=== PATIENT | female | born 1940 | race Caucasian/White ===

== ENCOUNTER 2019-05-11 23:33 | Emergency (ER) | payer MEDICARE, BC ==
[2019-05-12 00:15] VITALS: BP 142/74
[2019-05-12] MEDS ORDERED: traMADol 50 MG Tab PO ONE (00:25)
--- NOTE | 2019-05-12 00:28 | EDM.PDOC ---
ED HPI GENERAL MEDICAL PROBLEM - General Chief Complaint: General Stated Complaint: POST OP BLEEDING Time Seen by Provider: 05/12/19 00:19 Source of Information: Reports: Patient, Family, RN Notes Reviewed History Limitations: Reports: No Limitations - History of Present Illness INITIAL COMMENTS - FREE TEXT/NARRATIVE: 79-year-old female presents emergency department today with difficulty with pain control and some post leading from her site. She recently underwent thyroidectomy 3 days prior was discharged from hospital today she does have some oozing small amounts of dark red blood from her OpSite she was given hydrocodone for pain control she has not been able to tolerate this medication due to the characteristics of medication facial flushing upset stomach Neck Pain Score (Numeric/FACES): 4 - Related Data Allergies Allergy/AdvReac Type Severity Reaction Status Date / Time hydrocodone AdvReac Anxiety Verified 05/12/19 00:03 Home Meds: Home Meds Multivitamin with Minerals [Multiple Vitamin] 1 tab PO DAILY 04/29/15 [History] PARoxetine HCl [Paroxetine HCl] 10 mg PO DAILY 04/29/15 [History] Triamterene/Hydrochlorothiazid [Triamterene-HCTZ 75-50 MG] 1 tab PO DAILY [History] Past Medical History HEENT History: Reports: Impaired Vision Other HEENT History: wears glasses, macular degeneration in left eye Cardiovascular History: Reports: Hypertension Gastrointestinal History: Reports: Irritable Bowel Syndrome Endocrine/Metabolic History: Reports: Other (See Below) Other Endocrine/Metabolic History: bilate thyroidectomy 05/10/2019 Oncologic (Cancer) History: Reports: Thyroid - Past Surgical History Head Surgeries/Procedures: Reports: None HEENT Surgical History: Reports: None Cardiovascular Surgical History: Reports: None GI Surgical History: Reports: None Other Female Surgeries/Procedures: mid urethral sling for incontinence Endocrine Surgical History: Reports: Thyroidectomy Dermatological Surgical History: Reports: None Social & Family History - Tobacco Use Smoking Status *Q: Never Smoker - Caffeine Use Caffeine Use: Reports: None - Recreational Drug Use Recreational Drug Use: No ED ROS GENERAL - Review of Systems Review Of Systems: See Below Constitutional: Reports: No Symptoms HEENT: Reports: Other (Bleeding from postoperative site) Respiratory: Reports: No Symptoms Cardiovascular: Reports: No Symptoms ED EXAM, GENERAL - Physical Exam Exam: See Below Free Text/Narrative:: Examination of the surgical wound the majority the wound is clean dry and intact however there is a small approximately half centimeter open area with pressure will produce dark red blood, I don't appreciate any hematoma there is no significant tenderness to palpation to the neck Exam Limited By: No Limitations General Appearance: Alert, WD/WN, No Apparent Distress Throat/Mouth: Normal Inspection, Normal Lips, Normal Teeth, Normal Gums, Normal Oropharynx, Normal Voice, No Airway Compromise Respiratory/Chest: No Respiratory Distress, Lungs Clear, Normal Breath Sounds, No Accessory Muscle Use, Chest Non-Tender Cardiovascular: Regular Rate, Rhythm, No Murmur Course - Vital Signs Last Recorded V/S: Last Vital Signs Temp 95.4 F 05/12/19 00:14 Pulse 71 05/12/19 00:14 Resp 16 05/12/19 00:14 BP 142/74 H 05/12/19 00:14 Pulse Ox 91 L 05/12/19 00:14 - Orders/Labs/Meds Meds: Medications Discontinued Medications Generic Name Dose Route Start Last Admin Trade Name Suzanne PRN Reason Stop Dose Admin Tramadol HCl 50 mg 05/12/19 00:25 05/12/19 00:30 Ultram PO 05/12/19 00:26 50 mg ONETIME ONE Administration Departure - Departure Time of Disposition: 01:02 Disposition: Home, Self-Care 01 Condition: Fair Clinical Impression: Postoperative pain, Wound drainage - Discharge Information Instructions: Acute Pain, Adult Referrals: PCP,None [Primary Care Provider] - Forms: ED Department Discharge Additional Instructions: Use Ultram as needed for pain control, continue with your regular postoperative care, please contact your surgeon in the morning for further instructions, call or return to the emergency department worsening of symptoms - Assessment/Plan Plan: Assessment Acuity = acute Site and laterality = postop day 3 status post thyroidectomy with mild wound drainage and for pain control Etiology = not taking pain medications Manifestations = none] Location of injury = Home Lab values = none Plan She had good relief with Ultram 50 mg 11 prescription written for Ultram 50 mg by mouth 3 times a day when necessary total #15, one drainage did settle down while in the emergency department she elected watchful waiting, we'll contact her surgeon in the morning for further evaluation This note was dictated using [employer] voice recognition software please call with any questions on syntax or grammar.
== END 2019-05-12 01:18 | disposition home or self-care (01) ==
LOC: JP.ED 23:33
DX: G89.18 Other acute postprocedural pain (principal); E89.89 Other postprocedural endocrine and metabolic complications and disorders; Z88.8 Allergy status to other drugs, medicaments and biological substances
CPT/HCPCS: 99283; A9270

== ENCOUNTER 2020-07-16 07:55 | Day surgery (SDC) | payer MEDICARE, BC ==
[~2020-07-16 07:55] MED LIST: Bupivacaine 0.5% 50 ML MDV ONE; Lidocaine 1% with EPINEPHrine 1:100,000 50 ML MDV ONE
[2020-07-16] MEDS ORDERED: Dextrose 5%-Lactated Ringers 1,000 ML IV SCH (08:45)
[2020-07-16] MEDS ORDERED: Midazolam 1 MG/ML 2 ML SDV ONE (09:08)
[2020-07-16] MEDS ORDERED: Propofol 200 MG/20 ML SDV ONE (09:08)
[2020-07-16] MEDS ORDERED: fentaNYL 100 MCG/2 ML SDV ONE (09:08)
[2020-07-16] MEDS ORDERED: ceFAZolin 2 GM in Premix Bag 1 BAG IV ONE (09:30)
[2020-07-16 12:34] VITALS: BP 123/60; PULSE 55
--- NOTE | 2020-08-07 18:50 | OR ---
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 ANESTHESIA: General. 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 Potential risks including bleeding, infection, possible local recurrence, possible persistence, and positive margins were all reviewed, and the patient wishes to proceed. DETAILS OF PROCEDURE: The patient was taken to the operating room, placed in a supine position. After general endotracheal anesthesia was induced, she was turned slightly on to the right side and the calf area on the left then prepped and draped. Incision lines were then marked out. A transversely oriented elliptical incision measuring 6.5 cm was made over the previous excision site. This was carried down through the skin and subcutaneous tissue and down to the deep level of the subcutaneous tissue just above the fascia and the disc of tissue then excised. The lesion plus margin length was 5.2 cm and the incision length 6.5 cm. Incision was closed with 2 layers of 3-0 and 4-0 Vicryl stitch deep and then 5-0 Prolene skin stitch. Dressing was applied. The patient was taken to the recovery room in satisfactory condition. There were no evident complications. Jairo Raines MD /[id number]
== END 2020-07-16 12:45 | disposition home or self-care (01) ==
LOC: JP.SDS 07:55
PROVIDERS: ATTEND Surgery
DX: C44.729 Squamous cell carcinoma of skin of left lower limb, including hip (principal); I10 Essential (primary) hypertension; Z88.5 Allergy status to narcotic agent
CPT/HCPCS: 11606; 13121; 88305; J0690; J2250; J2704; J3010; J3490; J7121